=== PATIENT | male | born 1985 | race Hispanic/Latino ===

== ENCOUNTER 2019-04-10 10:58 | Emergency (ER) | payer OTHER ==
[2019-04-10] MEDS ORDERED: Adacel (T-DAP) 0.5 ML SYRINGE ONE (11:11)
== END 2019-04-10 11:48 | disposition home or self-care (01) ==
LOC: SCSER 10:58
DX: S01.01XA Laceration without foreign body of scalp, initial encounter (principal); Z23 Encounter for immunization; W22.8XXA Striking against or struck by other objects, initial encounter
CPT/HCPCS: 12001; 90471; 90715

== ENCOUNTER 2024-01-06 12:49 | Emergency (ER) | payer OTHER, SELFPAY ==
[2024-01-06] MEDS ORDERED: Acetaminophen 500 MG TAB ONE (14:35)
[2024-01-06] MEDS ORDERED: Ibuprofen 800 MG TAB ONE ×2 (14:35→14:38)
[2024-01-06] MEDS ORDERED: Boostrix 0.5 ML (Tdap) VIAL (>/=7 yrs of age) ONE (14:36)
== END 2024-01-06 15:37 | disposition home or self-care (01) ==
LOC: ERS 12:49
DX: S91.331A Puncture wound without foreign body, right foot, initial encounter (principal); W45.0XXA Nail entering through skin, initial encounter; Y99.8 Other external cause status; Z23 Encounter for immunization
CPT/HCPCS: 90471; 90715